=== PATIENT | male | born 1965 | race Caucasian/White ===

== ENCOUNTER → 2016-07-10 | Outpatient (CLI) | payer OTHER ==
--- NOTE | 2016-07-11 08:48 | MR ---
MR cervical spine and lumbar spine without contrast HISTORY: Pain Multiplanar multisequence imaging obtained through the cervical and lumbar spine. No comparisons available. Lumbar spine: Lumbar vertebral bodies show preserved height and alignment. Loss of disc height and si gnal present at the intervertebral levels with endplate discogenic marrow signal change. There is a s zeferino curvature. The conus is at T12-L1 and is unremarkable. L5-S1: Circumferential posterior extension of endplate disc complex encroaches upon both neural marilou ishaan. There is anterior mass effect on the thecal sac however no significant central canal stenosis. L4-5: Facet arthropathy with hypertrophy of the ligamentum flavum encroaches on the lateral recesses. Circumferential posterior disc bulge causes mild anterior mass effect on the thecal sac, lateral ext ension encroaches mildly on the neural foramina right greater than left. L3-4: Loss of disc height and signal compatible with disc desiccation and degenerative disc disease i s noted. No significant foraminal encroachment. Posterior broad-based disc bulge causes mild anterior mass effect on the thecal sac. Facet arthropathy with hypertrophy of the ligamentum flavum causes mi ld lateral recess stenosis. L2-3: Left posterior paracentral disc herniation causes anterolateral mass effect on the thecal sac, mild central canal stenosis is present. L1-2: Circumferential posterior disc bulge causes mild anterior mass effect on the thecal sac. No sig nificant central stenosis or foraminal encroachment. No paraspinal masses are evident. IMPRESSION: Degenerative disc disease, scoliosis, facet arthropathy and foraminal encroachment as marin cribed. Disc herniation greatest at L2-3. Cervical spine: There is multilevel spondylosis present. Loss of disc height and signal is greatest a t C5-6 and C6-7. Cervical cord signal, cervical medullary junction are unremarkable. C2-3: Unremarkable C3-4: Within normal limits C4-5: Mild left-sided foraminal encroachment due to uncovertebral joint hypertrophy facet arthropathy on the left. C5-6: Left-sided foraminal encroachment is present greater than right. Loss of disc height and signal is present, posterior extension of endplate disc complex is somewhat eccentric towards the left caus ing anterolateral mass effect on the thecal sac, there is only mild central stenosis. C6-7: Right posterior paracentral disc herniation may contact the anterior cervical cord. There is bi lateral foraminal encroachment left greater than right due to uncovertebral joint hypertrophy and fac et arthropathy. Posterior circumferential extension of endplate disc complex results in only mild mau tral stenosis. C7-T1: Mild left-sided foraminal encroachment is present. Cervical vertebral bodies show preserved height and alignment. IMPRESSION: Degenerative disc disease, foraminal encroachment, disc herniation as described C6-7.
== END | disposition home or self-care (01) ==
LOC: RADMRIMAIN 14:14
PROVIDERS: ATTEND Nurse Practitioner Acute Care
DX: M50.223 Other cervical disc displacement at C6-C7 level (principal); M50.323 Other cervical disc degeneration at C6-C7 level; M51.26 Other intervertebral disc displacement, lumbar region; M51.36 Other intervertebral disc degeneration, lumbar region; M46.96 Unspecified inflammatory spondylopathy, lumbar region; M41.9 Scoliosis, unspecified
CPT/HCPCS: 72141; 72148

== ENCOUNTER → 2020-07-15 | Outpatient (CLI) | payer OTHER ==
--- NOTE | 2020-07-15 14:49 | XR ---
EXAMINATION TYPE: XR lumbar spine 2 or 3V DATE OF EXAM: 07/15/2020 COMPARISON: None HISTORY: Back pain TECHNIQUE: 3 view lumbar spine FINDINGS: There are 5 lumbar-type vertebral bodies. Pedicles are intact. There is loss of disc at L5- S1. Remaining disc heights are preserved. Vertebral body heights are preserved. There is scoliosis wi th convexity to the left centered at L3. IMPRESSION: 1. Scoliosis. 2. Degenerative disc change L5-S1
== END | disposition home or self-care (01) ==
LOC: RADXRMAIN 13:49
PROVIDERS: ATTEND Nurse Practitioner Family
DX: M41.9 Scoliosis, unspecified (principal); M51.37 Other intervertebral disc degeneration, lumbosacral region
CPT/HCPCS: 72100